=== PATIENT | male | born 1995 | race Asian ===

== ENCOUNTER 2016-09-20 14:20 | Emergency (ER) | payer OTHER ==
[~2016-09-20] VITALS: Ht 182.9 cm; Wt 78.2 kg
[2016-09-20 14:24] VITALS: BP 135/87; TEMP 36.4; Ht 182.9 cm; Wt 78.2 kg
[2016-09-20] MEDS ORDERED: AMOXICILLIN/CLAVULANATE TAB 875 MG TAB PO ONE (15:15)
[2016-09-20] MEDS ORDERED: AMOX875T PO (15:22)
--- NOTE | 2016-09-20 15:22 | EMERGENCY ROOM VISIT NOTE ---
ED Visit Note First contact with patient: 15:07 Chief Complaint: RIGHT Eye Pain History of Present Illness: Patient is a 21-year-old male who presents to the emergency department his afternoon for evaluation of swelling to the RIGHT eye. He reports that he noticed some mild swelling upon awakening to the upper portion of the RIGHT eyelid. He reports that it subsided throughout the day. Upon awakening today, he had worsening swelling. The swelling has decreased somewhat, but still persists. He reports itchiness to the upper eyelid. He denies any foreign body sensation to the eye. There is no pain in the eye itself. He denies any blurry or double vision. There has been no discharge or drainage from the eye. The patient does not wear contacts or corrective lenses. There is been no trauma or injury to the eye. He rates his current discomfort as 2/10. He is tried nothing tzzz-mwn-wuscakw for his symptoms. He denies any fevers, chills, recent upper respiratory infections, blurry vision, double vision, posterior eye pain, headaches, dizziness, light headedness, or neck pain/stiffness. He is up-to-date on all vaccinations and immunizations. Medications: No current medications. Allergies: Bee stings. PMH: No pertinent past medical history. SHx: Patient is a 21-year-old [employer] student who lives with roommates. ROS: All pertinent positive and negative review of systems are appropriately documented in the History of Present Illness. Physical Exam: VITAL SIGNS - Vital signs and nursing notes were reviewed. GENERAL - 21-year-old male appearing his stated age. Communicates well with provider and answers questions appropriately. SKIN - mild edema noted to the RIGHT upper eyelid. No erythema or warmth to touch. No tenderness to palpation. No fluctuance to palpation. EYES - PERRL with EOMI bilaterally. Sclera without noticeable foreign body or excoriations. No injection noted in the RIGHT eye. Without subconjunctival hemorrhage. Palpebral conjunctiva pink and moist with no injection or discharge noted. EARS - No deformities of external structures noted on gross examination bilaterally. Handle of malleus, umbo, cone of light, pars tensa/flaccid all easily visualized. NOSE - Midline and without cyanosis. Without discharge. MOUTH/OROPHARYNX - Without perioral cyanosis. Tongue midline with equal elevation of palate bilaterally. No tonsillar hypertrophy, erythema, or exudates noted. Good dentition noted. NECK - FROM assessed. No cervical lymphadenopathy noted. ED Course: Patient was seen and evaluated by myself. I had a lengthy discussion with the patient regarding symptoms. The patient has some mild edema to the RIGHT upper eyelid. He has no fever. There is been no recent infections. I suspect that this may be more an allergic reaction which is localized to this affected area. He describes itching and burning. His exam is otherwise unremarkable. He has no involvement of the eye. I have low suspicion for preseptal cellulitis, however in this circumstance, I would hate to not cover the patient with antibiotics and have worsening of symptoms while doing so. Because of this, the patient was placed on Augmentin. He was encouraged to use Benadryl over-the -counter as well as cool compresses to the area. He was encouraged to follow- up with his primary care provider early this week for recheck. He was educated on worrisome symptoms for return visit to the emergency department. Patient discharged home afebrile and in good condition. In the evaluation and treatment of this patient, the following differential diagnoses were considered: Preseptal cellulitis, trauma, allergic reaction, Corneal Abrasion, Conjunctivitis, Eye Contusion, Globe Injury, Orbital Floor Injury (Blowout Fracture), Corneal Ulcer, Keratitis, Herpes Zoster Opthalmic, Blepharitis, Orbital Cellulitis, Iritis, Scleritis/Episcleritis, Uveitis, Temporal Arteritis, Subconjunctival Hemorrhage. Impression: RIGHT Upper Eyelid Swelling Discharge Instructions: You have been seen in the emergency department today for swelling to the RIGHT upper eyelid. You were prescribed Augmentin to be taken as prescribed. This is an antibiotic. All antibiotics have the potential to cause diarrhea. Stop this medication and contact a medical provider if you were to develop any significant adverse side effects including: wheezing, shortness of breath, passing out, vomiting, or a diffuse rash. Always take antibiotics as directed and COMPLETE the ENTIRE course regardless of the improvement of your symptoms. You should take Benadryl (diphenhydramine) 25-50 mg every 6 hours for the next 3 days. You can find this medicine [id number]. Benadryl can help reduce your symptoms. You should take it for the next 3 days or until your symptoms have subsided. Be aware that Benadryl can make you drowsy. Please use cool compresses to the area for comfort. For pain control, you can use the following qlbz-arn-sjtbzys medicines (if >12 yo): - Regular strength (325mg/tab) Tylenol (acetaminophen) 2 tabs every 4-6 hours as needed. Do not exceed 12 tablets in a 24 hour period. Avoid taking more than 4 grams (4000 mg) of Tylenol per day. This includes any other sources of acetaminophen you may take on a regular basis. - Regular strength (200 mg/tab) Advil (ibuprofen) 1-2 tabs every 4-6 hours as needed. Do not exceed a dose of 3200 mg per day. Follow-up with [facility] early next week for recheck. Return for any changing or worsening symptoms. Current/Historical Medications Scheduled Amoxicillin & Pot Clavulanate (Augmentin 875-125 mg), 875 MG PO BID Melatonin (Melatonin Maximum Strengt), 5 MG PO HS Allergies Uncoded Allergies: BEE STINGS (Allergy, Intermediate, RASH, ITCHING, 09/20/16) Vital Signs Date Time Temp Pulse Resp B/P Pulse Ox O2 Delivery O2 Flow Rate FiO2 09/20/16 16:00 68 16 99 09/20/16 14:24 36.4 67 18 135/87 100 Room Air Medications Administered Medications (Trade) Dose Ordered Sig/Dori Route Start Time Stop Time Status Last Admin Dose Admin Amoxicillin/ Clavulanate Potassium (Augmentin Tab) 875 mg ONE ONCE PO 09/20/16 15:15 09/20/16 15:16 DC 09/20/16 16:00 875 MG Departure Information Impression Primary Impression: Swelling of eyelid Dispostion Home / Self-Care Condition GOOD Prescriptions Amoxicillin & Pot Clavulanate (Augmentin 875-125 mg) 1 Tab Tab 875 MG PO BID for 7 Days, #14 TAB Prov: Eddie Bianchi PA-C 09/20/16 Referrals No Doctor, Assigned (PCP) Patient Instructions My [facility] Additional Instructions You have been seen in the emergency department today for swelling to the RIGHT upper eyelid. You were prescribed Augmentin to be taken as prescribed. This is an antibiotic. All antibiotics have the potential to cause diarrhea. Stop this medication and contact a medical provider if you were to develop any significant adverse side effects including: wheezing, shortness of breath, passing out, vomiting, or a diffuse rash. Always take antibiotics as directed and COMPLETE the ENTIRE course regardless of the improvement of your symptoms. You should take Benadryl (diphenhydramine) 25-50 mg every 6 hours for the next 3 days. You can find this medicine [id number]. Benadryl can help reduce your symptoms. You should take it for the next 3 days or until your symptoms have subsided. Be aware that Benadryl can make you drowsy. Please use cool compresses to the area for comfort. For pain control, you can use the following otwr-pkq-nqtlsup medicines (if >12 yo): - Regular strength (325mg/tab) Tylenol (acetaminophen) 2 tabs every 4-6 hours as needed. Do not exceed 12 tablets in a 24 hour period. Avoid taking more than 4 grams (4000 mg) of Tylenol per day. This includes any other sources of acetaminophen you may take on a regular basis. - Regular strength (200 mg/tab) Advil (ibuprofen) 1-2 tabs every 4-6 hours as needed. Do not exceed a dose of 3200 mg per day. Follow-up with [facility] early next week for recheck. Return for any changing or worsening symptoms. Problem Qualifiers Primary Impression: Swelling of eyelid Laterality: right Qualified Codes: H02.843 - Edema of right eye, unspecified eyelid
[2016-09-20] MEDS ORDERED: MELATAB2 PO (15:36)
[2016-09-20 16:00] VITALS: PULSE 68; O2SAT 99
== END 2016-09-20 16:00 | disposition home or self-care (01) ==
LOC: C.EDB 14:22 → C.EDA 16:00
DX: H02.841 Edema of right upper eyelid (principal)

== ENCOUNTER 2016-09-29 17:53 | Emergency (ER) | payer OTHER ==
[~2016-09-29] VITALS: Ht 182.9 cm; Wt 76.0 kg
[~2016-09-29 17:53] MED LIST: MELATAB2 PO
[2016-09-29 17:55] VITALS: TEMP 36.7; Ht 182.9 cm; Wt 76.0 kg
[2016-09-29 18:45] VITALS: BP 138/69; PULSE 74; O2SAT 100
--- NOTE | 2016-09-29 20:47 | EMERGENCY ROOM VISIT NOTE ---
ED Visit Note First contact with patient: 18:09 Chief Complaint: Right eyelid swelling. History of Present Illness: Mr. Martini is a 21-year-old male who ambulates into the ED complaining of right upper eyelid swelling. Historically patient reports approximately 9 days ago he was seen in the emergency for similar symptoms. He was placed on Augmentin and discharged to home. He reports there was resolution of swelling and pain and he did not follow-up. Patient reports last evening he started noticing some mild pain over the right lower eyelid and this morning when he awoke he noticed the swelling had returned. Currently associated with his swelling he reports he has a mild pressure sensation. He rates his discomfort 5/10. The pain is nonradiating. The pain worsens with palpation of the eyelid. He has not identified any alleviating factors related to the pain. He has not taken any medication for this discomfort prior to arrival at the hospital. He denies any associated symptoms including headaches, fevers, chills, recent eye trauma, visual changes , tearing, light sensitivity, foreign body sensation, flashing lights, drawling curtains, eye drainage. Review of Systems: As noted above in history of present illness. Past Medical History: Patient denies. Current Medications: Melatonin. Allergies to Medications: Patient denies. Social History: Patient is currently employed; he feels safe in his home environment; he denies tobacco and alcohol use. Physical Examination: Vital Signs: Date Time Temp Pulse Resp B/P Pulse Ox O2 Delivery O2 Flow Rate FiO2 09/29/16 18:45 74 18 138/69 100 09/29/16 17:55 36.7 88 16 126/73 96 Room Air GENERAL: 21-year-old male in no acute distress, nontoxic-appearing, afebrile and hemodynamically stable. NEUROLOGICAL: Awake, alert and oriented to person, place and time. Answering questions appropriately and following commands. SKIN: Warm, dry and pink. HEENT: Atraumatic and normocephalic. No erythema or tenderness over the frontal or maxillary sinuses. Right upper eyelid is swollen and there appears to be a small mass under the eyelid consistent with the appearance of a hordeolum. There is minimal erythema over the external portion of the eyelid. PERRLA. EOMI. Sclera white and conjunctiva pink without drainage. No foreign bodies noted under the eyelids are embedded in the cornea. I was not able to completely lift the eyelid for visualization of the internal conjunctiva. Anterior chamber was clear. No local lymphangitis. ED Course: Patient is assessed as noted above. Patient's case was reviewed with Dr. Pandya; we agreed on diagnostic approach , treatment, disposition and plan. Patient was educated about tonight's findings and instructed on his treatment plan; he verbalizes understanding and agreement with this plan. Clinical Impression: Right upper eyelid hordeolum. Decision-Making: Initially my differential diagnosis I considered foreign body, hordeolum, stye, upper eyelid infection, and other causes. Disposition: Patient discharged home in stable condition; prior to departure he was reassessed and subjectively reported he was pain-free. Plan: Patient was encouraged use ibuprofen or acetaminophen as needed for pain. Patient was encouraged use warm compresses over the eyelids. Patient was encouraged to follow-up with ophthalmology for definitive care and treatment. Patient was encouraged return the ED for worsening/uncontrolled pain, visual changes, fevers, redness or any new/concerning symptoms.
== END 2016-09-29 18:47 | disposition home or self-care (01) ==
LOC: C.EDB 17:54 → C.EDD 18:47
DX: H00.021 Hordeolum internum right upper eyelid (principal)

== ENCOUNTER 2016-11-12 19:26 | Emergency (ER) | payer OTHER ==
[~2016-11-12] VITALS: Ht 182.9 cm; Wt 77.5 kg
[2016-11-12 19:42] VITALS: TEMP 36.8; Ht 182.9 cm; Wt 77.5 kg
[2016-11-12] MEDS ORDERED: PROPARACAINE HCL 0.5% OP SOLN 15 ML BTL OP STA (19:56)
[2016-11-12] MEDS ORDERED: NORCO 5/325MG HOME PACK PO ONE (20:30)
[2016-11-12] MEDS ORDERED: CIPROFLOXACIN HCL 0.3% OP SOLN 2.5 ML BTL OP ONE (20:30)
[2016-11-12 20:38] VITALS: BP 123/76; PULSE 75; O2SAT 99
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
== END 2016-11-12 20:39 | disposition home or self-care (01) ==
LOC: C.EDB 19:28 → C.EDD 20:39
DX: S05.01XA Injury of conjunctiva and corneal abrasion without foreign body, right eye, initial encounter (principal); X58.XXXA Exposure to other specified factors, initial encounter; Y93.55 Activity, bike riding